=== PATIENT | female | born 1985 | race Caucasian/White ===

== ENCOUNTER 2017-08-14 13:38 | Emergency (ER) | payer OTHER ==
--- NOTE | 2017-08-14 14:16 | ED Physician Documentation ---
PD HPI CHEST PAIN - Stated complaint Stated Complaint: CHEST PX, VOMITTING - Chief complaint Chief Complaint: Cardiac - History obtained from History obtained from: Patient - History of Present Illness Timing - onset: Today Timing - onset during: Light activity Timing - details: Abrupt onset, Still present, Still present in ED Quality: Sharp, Tearing, Pain Location: Substernal Radiation: Back Improved by: No: Rest Worsened by: Inspiration, Movement. No: Eating, Palpation, Position Associated symptoms: Feeling faint / dizzy. No: Shortness of air, Nausea, Vomiting, Palpitations, Cough Similar symptoms before: Has not had sx before Recently seen: Not recently seen Review of Systems Constitutional: denies: Fever, Chills Nose: denies: Rhinorrhea / runny nose, Congestion Throat: denies: Sore throat Cardiac: denies: Palpitations, Pedal edema, Calf pain Respiratory: denies: Cough GI: denies: Abdominal Pain, Nausea, Vomiting, Diarrhea : denies: Dysuria, Frequency Skin: denies: Rash, Lesions Musculoskeletal: denies: Joint pain, Extremity swelling Neurologic: denies: Near syncope, Syncope, Altered mental status PD PAST MEDICAL HISTORY - Past Medical History Cardiovascular: None Respiratory: None Neuro: None Endocrine/Autoimmune: None GI: GERD 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) : Chronic bladder infection HEENT: None Psych: None Musculoskeletal: None Derm: None - Past Surgical History Past Surgical History: Yes /BULK PALLET 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: section - Present Medications Home Medications: Ambulatory Orders Medication Instructions Recorded Confirmed Famotidine [Pepcid] 20 mg PO ONCE #20 tablet 08/14/17 Multivitamin [Multivitamins] 1 cap PO DAILY 08/14/17 08/14/17 Naproxen [Naprosyn] 500 mg PO BID #15 tablet 08/14/17 Oxycodone HCl/Acetaminophen 1 each PO Q6H PRN #12 tablet 08/14/17 [Percocet 5-325 mg Tablet] - Allergies Allergies/Adverse Reactions: Allergies Allergy/AdvReac Type Severity Reaction Status Date / Time clarithromycin [From Biaxin] Allergy Severe Itching Verified 08/14/17 13:54 erythromycin base Allergy Severe Rash Verified 08/14/17 13:54 [Erythromycin Base] hydrocodone bitartrate * Allergy Severe Itching Verified 08/14/17 13:54 [From Vicodin] levofloxacin [From Levaquin] Allergy Severe Rash Verified 08/14/17 13:54 Penicillins Allergy Severe Hives Verified 08/14/17 13:54 Sulfa (Sulfonamide Allergy Severe Itching Verified 08/14/17 13:54 Antibiotics) - Social History Does the pt smoke?: No Smoking Status: Never smoker Does the pt drink ETOH?: Yes Does the pt have substance abuse?: No - Family History Family history: denies: Venous thromboembolism, Aortic aneursym, Aortic dissection - Immunizations Immunizations are current?: Yes - POLST Patient has POLST: No PD ED PE NORMAL - Vitals Vital signs reviewed: Yes - General General: Alert and oriented X 3, Well developed/nourished, Other (appears in significant pain, with intermittent stabbinb pain substernally.) - HEENT HEENT: Moist mucous membranes, Pharynx benign - Neck Neck: Supple, no meningeal sign, No adenopathy - Cardiac Cardiac: RRR, No murmur - Respiratory Respiratory: No respiratory distress, Clear bilaterally - Abdomen Abdomen: Normal bowel sounds, Soft, Non tender, Non distended - Back Back: No CVA TTP - Derm Derm: Normal color, Warm and dry - Extremities Extremities: No tenderness to palpate, Normal ROM s pain, No edema, No calf tenderness / cord - Neuro Neuro: Alert and oriented X 3, No motor deficit, Normal speech - Psych Psych: Normal mood, Normal affect Results - Vitals Vitals: Vital Signs - 24 hr 08/14/17 08/14/17 08/14/17 13:50 15:23 16:30 Temperature 36.5 C 36.5 C 36.4 C L Heart Rate 97 74 76 Respiratory 20 16 12 Rate Blood Pressure 132/80 H 109/71 123/78 O2 Saturation 99 98 98 08/14/17 08/14/17 16:38 17:20 Temperature 36.3 C L Heart Rate 73 75 Respiratory 16 16 Rate Blood Pressure 122/67 128/70 O2 Saturation 100 98 Oxygen O2 Source Room air - Labs Labs: Laboratory Tests 08/14/17 08/14/17 08/14/17 15:11 15:11 15:11 WBC 5.6 RBC 5.72 H Hgb 14.5 Hct 44.4 MCV 77.6 L MCH 25.4 L MCHC 32.7 RDW 14.2 Plt Count 169 MPV 8.8 Neut # 2.3 Lymph # 2.6 [place] # 0.5 Eos # 0.2 Baso # 0.0 Absolute Nucleated RBC 0.00 Nucleated RBC % 0.0 Sodium 139 Potassium 4.2 Chloride 105 Carbon Dioxide 25 Anion Gap 9.0 BUN 15 Creatinine 0.8 Estimated GFR (MDRD) 85 L Glucose 111 H Calcium 8.8 Total Bilirubin 0.4 AST 18 ALT 24 Alkaline Phosphatase 64 Troponin I < 0.04 Total Protein 7.0 Albumin 4.1 Globulin 2.9 Albumin/Globulin Ratio 1.4 Lipase 23 - Rads (name of study) chest xray Radiology: Prelim report reviewed (normal) chest CT-A Radiology: Prelim report reviewed (negative) PD MEDICAL DECISION MAKING - ED course Complexity details: considered differential (such severe substernal pain, sharp and stabbing, not improved with GI cocktail. Normal ECG and CXR. Concern for vascular such as aortic dissection, that got CT angio chest, which is read as normal by Radiologist. ), d/w patient Departure - Departure Disposition: 01 Home, Self Care Clinical Impression: Substernal chest pain Condition: Stable Record reviewed to determine appropriate education?: Yes Instructions: ED Chest Pain Atypical Unkn Cause Follow-Up: FAITH QUEVEDO MD [Primary Care Provider] - Prescriptions: Famotidine [Pepcid] 20 mg PO ONCE #20 tablet Naproxen [Naprosyn] 500 mg PO BID #15 tablet Oxycodone HCl/Acetaminophen [Percocet 5-325 mg Tablet] 1 each PO Q6H PRN #12 tablet PRN Reason: Pain Comments: Drink lots of fluids. I do not know the cause of the pain exactly. I presume its inflammatory given the better response to Toradol which is an anti- inflammatory than it did to the antacid. However he would still do some acid reducing medicine for the stomach in case and suggest famotidine daily for couple weeks. Additionally I would use some ibuprofen or naproxen twice daily for the next week for inflammation. Add Tylenol for mild pain. Add Percocet if needed for worse pain but very short-term only. Recheck if not entirely improved over the next 3-4 days. Return sooner if worse or other symptoms. Discharge Date/Time: 08/14/17 17:22
[2017-08-14] MEDS ORDERED: LIDOCAINE VISCOUS 2% 15 ML UDC MM STA (14:29)
[2017-08-14] MEDS ORDERED: MAG HYDROX/AL HYDROX/SIMETH 30 ML UDC PO STA (14:29)
[2017-08-14] MEDS ORDERED: ACETAMINOPHEN 325 MG TABLET PO STA (14:29)
[2017-08-14] MEDS ORDERED: MAG HYDROX/AL HYDROX/SIMETH 30 ML UDC ONE (14:50)
[2017-08-14] MEDS ORDERED: LIDOCAINE VISCOUS 2% 15 ML UDC MM ONE (14:50)
[2017-08-14] MEDS ORDERED: ACETAMINOPHEN 325 MG TABLET PO ONE (14:50)
[2017-08-14] MEDS ORDERED: KETOROLAC 60 MG/2 ML VIAL IVP STA (15:02)
[2017-08-14] MEDS ORDERED: IOPAMIDOL-300 100 ML VIAL ONE (15:09)
[2017-08-14] MEDS ORDERED: SODIUM CHLORIDE FLUSH 0.9% 10 ML SYRINGE IVP ONE (15:20)
[2017-08-14] MEDS ORDERED: KETOROLAC 30 MG/ML VIAL ONE (15:20)
--- NOTE | 2017-08-14 15:25 | XRAY Preliminary Report ---
Exam: XR Chest 2 View PA/LAT IMPRESSION: Normal 2-view chest radiography. [facility] SITE ID: [id number]
[2017-08-14 15:26] LABS: BASOPHILS % (AUTO) 0.5 %; EOSINOPHILS # (AUTO) 0.2 10^3/uL (0.0-0.7); EOSINOPHILS % (AUTO) 3.5 %; HCT - HEMATOCRIT 44.4 % (37.0-47.0); HGB - HEMOGLOBIN 14.5 g/dL (12.0-16.0); LYMPHOCYTES # (AUTO) 2.6 10^3/uL (1.5-3.5); LYMPHOCYTES % (AUTO) 46.6 %; MEAN CORPUSCULAR HEMOGLOBIN 25.4 pg (27.0-31.0); MEAN CORPUSCULAR HGB CONC 32.7 g/dL (32.0-36.0); MEAN CORPUSCULAR VOLUME 77.6 fL (81.0-99.0); MEAN PLATELET VOLUME 8.8 fL (7.9-10.8); MONOCYTES # (AUTO) 0.5 10^3/uL (0.0-1.0); MONOCYTES % (AUTO) 8.3 %; NEUTROPHILS # (AUTO) 2.3 10^3/uL (1.5-6.6); NEUTROPHILS % (AUTO) 41.1 %; RED BLOOD COUNT 5.72 10^6/uL (4.20-5.40); RED CELL DISTRIBUTION WIDTH 14.2 % (12.0-15.0); UNCORRECTED WHITE BLOOD COUNT 5.6 x10^3/uL; WHITE BLOOD COUNT 5.6 x10^3/uL (4.8-10.8)
--- NOTE | 2017-08-14 15:27 | XRAY Report ---
EXAM: CHEST RADIOGRAPHY EXAM DATE: 08/14/2017 02:52 PM. CLINICAL HISTORY: Substernal chest pain today. COMPARISON: None. TECHNIQUE: 2 views. FINDINGS: Lungs/Pleura: No focal opacities evident. No pleural effusion. No pneumothorax. Normal volumes. Mediastinum: Heart and mediastinal contours are unremarkable. Other: None. IMPRESSION: Normal 2-view chest radiography. [facility] Referring Provider Line: [phone] SITE ID: [id number]
[2017-08-14 15:31] LABS: ALBUMIN/GLOBULIN RATIO 1.4 (1.0-2.2); BILIRUBIN,TOTAL 0.4 mg/dL (0.2-1.0); CALCIUM 8.8 mg/dL (8.5-10.3); CREATININE 0.8 mg/dL (0.4-1.0); POTASSIUM 4.2 mmol/L (3.5-5.0)
[2017-08-14] MEDS ORDERED: IOPAMIDOL-300 100 ML VIAL IVP ONE (15:43)
--- NOTE | 2017-08-14 16:10 | CT Report ---
<H1.> EXAM: CT ANGIOGRAM CHEST AND ABDOMEN EXAM DATE: 08/14/2017 03:46 PM. CLINICAL HISTORY: Substernal chest pain, severe. COMPARISONS: None. TECHNIQUE: Routine axial helical CT angiographic imaging was performed through the chest and abdomen. IV Contras t: 80 cc of Isovue 300. Reconstructions: Coronal, sagittal, and 3D MIP reconstructions of the aorta. In accordance with CT protocol optimization, one or more of the following dose reduction techniques w ere utilized for this exam: automated exposure control, adjustment of mA and/or KV based on patient s ize, or use of iterative reconstructive technique. FINDINGS: Vascular Structures: Normal. No aneurysm, dissection, or significant atherosclerotic disease of the t horacic aorta, abdominal aorta, or proximal iliac arteries. The visualized pulmonary, mesenteric, and solid organ vascular structures are also within normal limits. Lungs/Pleura: No consolidation, nodules, or edema. No effusions or pneumothorax. Mediastinum: Normal. No cardiac enlargement or adenopathy. Abdominal Organs: Normal. The liver, spleen, pancreas, adrenal glands, gallbladder and kidneys are no rmal in size and demonstrate no masses or abnormal enhancement. Peritoneal Cavity: Normal. No free fluid, free air, or acute inflammatory process. Bones: No significant abnormality. Other: None. IMPRESSION: Normal chest and abdomen CT angiogram. No aneurysm or dissection. [facility] Referring Provider Line: [phone] SITE ID: [id number]
--- NOTE | 2017-08-14 16:10 | CT Preliminary Report ---
Exam: CT Chest Angio (AORTA) IMPRESSION: Normal chest and abdomen CT angiogram. No aneurysm or dissection. [facility] SITE ID: [id number]
[2017-08-14 17:21] VITALS: BP 128/70
== END 2017-08-14 17:22 | disposition home or self-care (01) ==
LOC: ED 13:38
DX: R07.2 Precordial pain (principal)
CPT/HCPCS: 36415; 71020; 71275; 80053; 83690; 84484; 85025; 93005; 96374; 99284; A9270; Q9967

== ENCOUNTER 2019-01-11 18:06 | Emergency (ER) | payer OTHER ==
[2019-01-11 18:17] VITALS: BP 140/88
[2019-01-11] MEDS ORDERED: KETOROLAC 30 MG/ML VIAL IVP STA (19:01)
[2019-01-11] MEDS ORDERED: METOCLOPRAMIDE 10 MG/2 ML VIAL IVP STA (19:02)
[2019-01-11] MEDS ORDERED: LORazepam 2 MG/ML VIAL IVP STA (19:02)
--- NOTE | 2019-01-11 19:06 | ED Physician Documentation ---
PD HPI FOCAL NEURO - Stated complaint Stated Complaint: HEADACHE/SOA/LT ARM PX - Chief complaint Chief Complaint: Neuro - History obtained from History obtained from: Patient - History of Present Illness Timing - onset: Other (This is a 33-year-old woman with history of anxiety and depression. She recently stopped Cymbalta about a week and a half ago because of side effects. She denies suicidal or homicidal ideation but presents today with multiple complaints including chronic migraine headache with aura since yesterday seeing black spots in her eyes. She also has increased chest and neck pain similar to prior episodes of vocal cord dysfunction. She denies any possibility of . No alcohol or drug use. 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: section - Present Medications Home Medications: Ambulatory Orders Medication Instructions Recorded Confirmed Famotidine [Pepcid] 20 mg PO ONCE #20 tablet 08/14/17 Multivitamin [Multivitamins] 1 cap PO DAILY 08/14/17 08/14/17 Naproxen [Naprosyn] 500 mg PO BID #15 tablet 08/14/17 Oxycodone HCl/Acetaminophen 1 each PO Q6H PRN #12 tablet 08/14/17 [Percocet 5-325 mg Tablet] Amitriptyline [Elavil] 25 mg PO HS #7 tablet 01/11/19 - Allergies Allergies/Adverse Reactions: Allergies Allergy/AdvReac Type Severity Reaction Status Date / Time clarithromycin [From Biaxin] Allergy Severe Itching Verified 01/11/19 18:17 erythromycin base Allergy Severe Rash Verified 01/11/19 18:17 [Erythromycin Base] hydrocodone bitartrate * Allergy Severe Itching Verified 01/11/19 18:17 [From Vicodin] levofloxacin [From Levaquin] Allergy Severe Rash Verified 01/11/19 18:17 Penicillins Allergy Severe Hives Verified 01/11/19 18:17 Sulfa (Sulfonamide Allergy Severe Itching Verified 01/11/19 18:17 Antibiotics) - Social History Does the pt smoke?: No Smoking Status: Never smoker Does the pt drink ETOH?: Yes Does the pt have substance abuse?: No - Immunizations Immunizations are current?: Yes - POLST Patient has POLST: No PD ED PE NORMAL - Vitals Vital signs reviewed: Yes - General General: Alert and oriented X 3, No acute distress, Other (She is tearful at times) - HEENT HEENT: PERRL, EOMI - Neck Neck: Supple, no meningeal sign, No bony TTP - Cardiac Cardiac: RRR, No murmur, Other (Tender anterior sternum and chest wall) - Respiratory Respiratory: No respiratory distress, Clear bilaterally - Abdomen Abdomen: Normal bowel sounds, Soft, Non tender - Back Back: No CVA TTP, No spinal TTP - Derm Derm: Normal color, Warm and dry - Extremities Extremities: No edema, No calf tenderness / cord - Neuro Neuro: Alert and oriented X 3, Normal speech Results - Vitals Vitals: Vital Signs - 24 hr 01/11/19 18:13 Temperature 36.6 C Heart Rate 73 Respiratory 14 Rate Blood Pressure 140/88 H O2 Saturation 100 Oxygen O2 Source Room air - EKG (time done) 1829 Rate: Rate (enter#) (83) Rhythm: NSR [place]: Normal Intervals: Normal [place] QRS: Normal Ischemia: ST elevation c/w repol Computer interpretation: Agree with computer - Labs Labs: Laboratory Tests 01/11/19 01/11/19 01/11/19 19:08 19:08 19:08 WBC 5.9 RBC 5.55 H Hgb 14.2 Hct 43.2 MCV 77.9 L MCH 25.6 L MCHC 32.8 RDW 14.7 Plt Count 206 MPV 8.9 Neut # (Auto) 2.2 Lymph # (Auto) 2.7 [place] # (Auto) 0.7 Eos # (Auto) 0.3 Baso # (Auto) 0.0 Absolute Nucleated RBC 0.00 Nucleated RBC % 0.0 Sodium 137 Potassium 3.6 Chloride 105 Carbon Dioxide 25 Anion Gap 7.0 BUN 12 Creatinine 0.8 Estimated GFR (MDRD) 84 L Glucose 98 Calcium 8.6 Total Bilirubin 0.4 AST 16 ALT 25 Alkaline Phosphatase 69 Troponin I < 0.04 Total Protein 6.9 Albumin 3.9 Globulin 3.0 Albumin/Globulin Ratio 1.3 Lipase 28 PD MEDICAL DECISION MAKING - ED course ED course: 33-year-old woman presents with status migrainosus and vocal cord dysfunction for which she was treated with Toradol Reglan and Ativan with excellent relief. Diagnostics were negative. We will trial a low-dose of amitriptyline at night, a limited prescription and she will follow-up with her doctor to report if it is helping with her migraine frequency and/or depression. Departure - Departure Disposition: Home, Self Care Clinical Impression: Migraine Qualifiers: Migraine type: with aura Status migrainosus presence: with status migrainosus Intractability: intractable Qualified Code(s): G43.111 - Migraine with aura, intractable, with status migrainosus Condition: Good Record reviewed to determine appropriate education?: Yes Instructions: ED Headache Migraine Prescriptions: Amitriptyline [Elavil] 25 mg PO HS #7 tablet Comments: The amitriptyline should help with both depression and migraine frequency. Report to your doctor early next week if it is helpful for refill. Your blood pressure was elevated today on check into the emergency department. This does not mean that you have hypertension, it is a common phenomenon to come to the emergency department and have elevated blood pressure. I recommend that you see your primary care physician within the week to have it rechecked when you are feeling better.
[2019-01-11 19:17] LABS: BASOPHILS % (AUTO) 0.6 %; EOSINOPHILS # (AUTO) 0.3 10^3/uL (0.0-0.7); EOSINOPHILS % (AUTO) 4.2 %; HGB - HEMOGLOBIN 14.2 g/dL (12.0-16.0); LYMPHOCYTES # (AUTO) 2.7 10^3/uL (1.5-3.5); LYMPHOCYTES % (AUTO) 45.9 %; MEAN CORPUSCULAR HEMOGLOBIN 25.6 pg (27.0-31.0); MEAN CORPUSCULAR HGB CONC 32.8 g/dL (32.0-36.0); MEAN CORPUSCULAR VOLUME 77.9 fL (81.0-99.0); MEAN PLATELET VOLUME 8.9 fL (7.9-10.8); MONOCYTES # (AUTO) 0.7 10^3/uL (0.0-1.0); MONOCYTES % (AUTO) 11.7 %; NEUTROPHILS # (AUTO) 2.2 10^3/uL (1.5-6.6); NEUTROPHILS % (AUTO) 37.6 %; PLT - PLATELET COUNT 206 10^3/uL (130-450); RED BLOOD COUNT 5.55 10^6/uL (4.20-5.40); RED CELL DISTRIBUTION WIDTH 14.7 % (12.0-15.0); WHITE BLOOD COUNT 5.9 x10^3/uL (4.8-10.8)
[2019-01-11 19:26] LABS: ALBUMIN 3.9 g/dL (3.2-5.5); ALBUMIN/GLOBULIN RATIO 1.3 (1.0-2.2); BILIRUBIN,TOTAL 0.4 mg/dL (0.2-1.0); CALCIUM 8.6 mg/dL (8.5-10.3); CREATININE 0.8 mg/dL (0.4-1.0); TOTAL PROTEIN 6.9 g/dL (6.7-8.2)
== END 2019-01-11 20:09 | disposition home or self-care (01) ==
LOC: ED 18:06
DX: G43.111 Migraine with aura, intractable, with status migrainosus (principal); J38.3 Other diseases of vocal cords; R03.0 Elevated blood-pressure reading, without diagnosis of hypertension
CPT/HCPCS: 36415; 80053; 83690; 84484; 85025; 93005; 96374; 99283; J2060; J2765

== ENCOUNTER 2019-12-21 15:38 | Emergency (ER) | payer OTHER ==
[2019-12-21] MEDS ORDERED: CHERRY SYRUP 10 ML UDC PO ONE (16:17)
[2019-12-21] MEDS ORDERED: DEXAMETHASONE 10 MG/ML VIAL PO STA (16:17)
[2019-12-21] MEDS ORDERED: KETOROLAC 60 MG/2 ML VIAL IM STA (16:17)
--- NOTE | 2019-12-21 16:20 | ED Physician Documentation ---
History of Present Illness - Stated complaint Stated Complaint: AB/RIB PX - Chief complaint Chief Complaint: Trauma Ext - History obtained from History obtained from: Patient - History of Present Illness Timing: How many weeks ago (8) - Additonal information Additional information: 32-year-old female with a history of anxiety depression arthritis and migraine h brad has generalized pain and pain in her ribs the pain down her left arm and left neck. She is wearing a sling for the left arm. She has had manipulations of her ribs previously done which has previously helped this last time it did not seem to help and she is complaining of pain in her anterior right ribs pain in her hands pain in her hips pain over her right upper quadrant of her abdomen pain in her neck and back. She has had some congestion and a high-pitched noise in her ears as well as some dizziness.She has had low-grade fever and cough. Review of Systems Constitutional: reports: Fever Eyes: denies: Decreased vision Ears: reports: Ear pain, Tinnitus/ringing Nose: reports: Congestion Throat: denies: Sore throat Cardiac: reports: Chest pain / pressure. denies: Palpitations, Pedal edema, Calf pain Respiratory: reports: Cough. denies: Dyspnea GI: reports: Nausea. 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: section - Present Medications Home Medications: Ambulatory Orders Medication Instructions Recorded Confirmed Famotidine [Pepcid] 20 mg PO ONCE #20 tablet 08/14/17 Multivitamin [Multivitamins] 1 cap PO DAILY 08/14/17 08/14/17 Naproxen [Naprosyn] 500 mg PO BID #15 tablet 08/14/17 Oxycodone HCl/Acetaminophen 1 each PO Q6H PRN #12 tablet 08/14/17 [Percocet 5-325 mg Tablet] Amitriptyline [Elavil] 25 mg PO HS #7 tablet 01/11/19 Cefdinir 300 mg PO BID #20 capsule 12/21/19 - Allergies Allergies/Adverse Reactions: Allergies Allergy/AdvReac Type Severity Reaction Status Date / Time clarithromycin [From Biaxin] Allergy Severe Itching Verified 01/11/19 18:17 erythromycin base Allergy Severe Rash Verified 01/11/19 18:17 [Erythromycin Base] hydrocodone bitartrate * Allergy Severe Itching Verified 01/11/19 18:17 [From Vicodin] levofloxacin [From Levaquin] Allergy Severe Rash Verified 01/11/19 18:17 Penicillins Allergy Severe Hives Verified 01/11/19 18:17 Sulfa (Sulfonamide Allergy Severe Itching Verified 01/11/19 18:17 Antibiotics) - Social History Does the pt smoke?: No Smoking Status: Never smoker Does the pt drink ETOH?: Yes Does the pt have substance abuse?: No - Immunizations Immunizations are current?: Yes - POLST Patient has POLST: No PD ED PE NORMAL - Vitals Vital signs reviewed: Yes (hypertensive mild ) - General General: Alert and oriented X 3, No acute distress, Well developed/nourished - HEENT HEENT: Atraumatic, PERRL, EOMI, Pharynx benign, Other (right TM is inflamed angrily along the umbo the left is clear ) - Neck Neck: Supple, no meningeal sign, No bony TTP - Cardiac Cardiac: RRR, No murmur - Respiratory Respiratory: No respiratory distress, Clear bilaterally, Other (There is tenderness to the anterior chest wall along the costosternal margin. 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 She does have otitis on exam. She is administered dexamethasone 10 mg orally Toradol 60 mg IM and we will treat her otitis with antibiotic as well as I suspect this may be contributing to her increased overall pain. I do not have a solution for the patient's allodynia otherwise. I have discussed with her potential follow up with rheumatology as her pain is wide spread, involves joints and is persistent. She will need a referral. Departure - Departure Disposition: 01 Home, Self Care Clinical Impression: Allodynia Otitis media Qualifiers: Otitis media type: suppurative Chronicity: acute Laterality: right Recurrence: non-recurrent Spontaneous tympanic membrane rupture: without spontaneous rupture Qualified Code(s): H66.001 - Acute suppurative otitis media without spontaneous rupture of ear drum, right ear Condition: Stable Instructions: ED Otitis Media Acute Adult, ED Joint Pain, ED Chest Pain Costochondritis Follow-Up: YUNG LEIVA MD [Primary Care Provider] - Prescriptions: Cefdinir 300 mg PO BID #20 capsule Comments: Today your wide spread pain is concerning for a rheumatologic problem and a fo llow up with a supplier diversity director might be helpful.
[2019-12-21 17:56] VITALS: BP 119/71
== END 2019-12-21 17:55 | disposition home or self-care (01) ==
LOC: ED 15:38
DX: R20.3 Hyperesthesia (principal); H66.001 Acute suppurative otitis media without spontaneous rupture of ear drum, right ear
CPT/HCPCS: 96372; 99283; 99284; A9270

== ENCOUNTER 2020-07-14 21:46 | Emergency (ER) | payer OTHER ==
--- NOTE | 2020-07-14 22:01 | ED Physician Documentation ---
PD HPI DYSPNEA - Stated complaint Stated Complaint: SOA, FOOT SWELLING - Chief complaint Chief Complaint: Cardiac - History obtained from History obtained from: Patient - History of Present Illness Timing - onset: How many days ago (3) Timing - details: Gradual onset, Constant, Waxing and waning Pain level now: 3 Improved by: Rest Worsened by: Exertion Associated symptoms: Chest pain / discomfort, Unilateral edema. No: Fever, Cough, Hemoptysis, Wheezing, Palpitations, Diaphoresis, Bilateral edema Similar symptoms before: Has not had sx before Recently seen: Not recently seen - Additional information Additional information: c/o 3 days of chest pressure/tightness with intermittent component of stabbing pain, associated with dyspnea. She also notes LLE swelling for several weeks. Review of Systems Constitutional: denies: Fever, Chills, Sweats Cardiac: reports: Chest pain / pressure, Pedal edema. denies: Palpitations, Calf pain Respiratory: reports: Dyspnea. denies: Cough, Hemoptysis, Wheezing GI: reports: Reviewed and negative : denies: Dysuria, Frequency, Now EGA Musculoskeletal: reports: Extremity swelling. 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: section - Present Medications Home Medications: Ambulatory Orders Medication Instructions Recorded Confirmed Famotidine [Pepcid] 20 mg PO ONCE #20 tablet 08/14/17 Multivitamin [Multivitamins] 1 cap PO DAILY 08/14/17 08/14/17 Naproxen [Naprosyn] 500 mg PO BID #15 tablet 08/14/17 Oxycodone HCl/Acetaminophen 1 each PO Q6H PRN #12 tablet 08/14/17 [Percocet 5-325 mg Tablet] Amitriptyline [Elavil] 25 mg PO HS #7 tablet 01/11/19 Cefdinir 300 mg PO BID #20 capsule 12/21/19 traMADol [Ultram] 50 - 100 mg PO Q6H PRN #20 tablet 07/15/20 - Allergies Allergies/Adverse Reactions: Allergies Allergy/AdvReac Type Severity Reaction Status Date / Time clarithromycin [From Biaxin] Allergy Severe Itching Verified 07/14/20 22:26 erythromycin base Allergy Severe Rash Verified 07/14/20 22:26 [Erythromycin Base] hydrocodone bitartrate * Allergy Severe Itching Verified 07/14/20 22:26 [From Vicodin] levofloxacin [From Levaquin] Allergy Severe Rash Verified 07/14/20 22:26 Penicillins Allergy Severe Hives Verified 07/14/20 22:26 Sulfa (Sulfonamide Allergy Severe Itching Verified 07/14/20 22:26 Antibiotics) - Social History Does the pt smoke?: No Smoking Status: Never smoker Does the pt drink ETOH?: Yes Does the pt have substance abuse?: No - Immunizations Immunizations are current?: Yes - POLST Patient has POLST: No PD ED PE NORMAL - Vitals Vital signs reviewed: Yes - General General: Alert and oriented X 3, No acute distress, Well developed/nourished - HEENT HEENT: Moist mucous membranes - Neck Neck: Supple, no meningeal sign - Cardiac Cardiac: RRR, No murmur, No gallop, No rub - Respiratory Respiratory: No respiratory distress, Clear bilaterally - Abdomen Abdomen: Soft, Non tender - Derm Derm: Normal color, Warm and dry - Extremities Extremities: No edema, No calf tenderness / cord Results - Vitals Vitals: Vital Signs - 24 hr 07/14/20 07/14/20 07/14/20 21:55 22:00 23:00 Temperature 37.2 C Heart Rate 84 77 78 Respiratory 16 17 24 Rate Blood Pressure 136/88 H 120/82 H 135/105 H O2 Saturation 100 100 100 07/14/20 07/14/20 07/15/20 23:11 23:48 00:54 Temperature Heart Rate 81 90 87 Respiratory 20 25 H 25 H Rate Blood Pressure 130/84 H 128/86 H 121/74 O2 Saturation 100 100 100 07/15/20 07/15/20 02:08 02:19 Temperature 36.9 C 37.1 C Heart Rate 70 72 Respiratory 16 14 Rate Blood Pressure 122/84 H 122/84 H O2 Saturation 100 99 Oxygen O2 Source Room air - EKG (time done) No standard instances Rate: Rate (enter#) (77) Rhythm: NSR [place]: Normal Intervals: Normal CA QRS: Normal Ischemia: Normal ST segments - Labs Labs: Laboratory Tests 07/14/20 07/14/20 07/14/20 23:01 23:01 23:01 WBC 9.6 RBC 5.34 Hgb 13.8 Hct 43.0 MCV 80.5 L MCH 25.8 L MCHC 32.1 RDW 14.4 Plt Count 241 MPV 10.9 H Neut # (Auto) 4.7 Lymph # (Auto) 3.7 H [place] # (Auto) 0.8 Eos # (Auto) 0.4 Baso # (Auto) 0.0 Absolute Nucleated RBC 0.00 Nucleated RBC % 0.0 Sodium 135 Potassium 3.9 Chloride 103 Carbon Dioxide 25 Anion Gap 7.0 BUN 16 Creatinine 0.9 Estimated GFR (MDRD) 73 L Glucose 103 H Calcium 8.8 Total Bilirubin 0.4 AST 14 ALT 23 Alkaline Phosphatase 70 Troponin I High Sens < 2.3 L Total Protein 6.7 Albumin 4.1 Globulin 2.6 Albumin/Globulin Ratio 1.6 Lipase 25 - Rads (name of study) CT chest angio Radiology: Prelim report reviewed, See rad report LLE doppler US Radiology: Prelim report reviewed, See rad report PD MEDICAL DECISION MAKING - ED course Complexity details: reviewed results, re-evaluated patient, considered differential, d/w patient Departure - Departure Disposition: 01 Home, Self Care Clinical Impression: Chest pain Condition: Good Instructions: ED Chest Pain Atypical Unkn Cause, ED Chest Pain Costochondritis, ED Chest Pain Pleurisy Follow-Up: Liliana Prado ARNP [Primary Care Provider] - Prescriptions: traMADol [Ultram] 50 - 100 mg PO Q6H PRN #20 tablet PRN Reason: Pain Discharge Date/Time: 07/15/20 02:22
[2020-07-14 23:07] LABS: BASOPHILS % (AUTO) 0.3 %; EOSINOPHILS # (AUTO) 0.4 10^3/uL (0.0-0.7); EOSINOPHILS % (AUTO) 4.5 %; HGB - HEMOGLOBIN 13.8 g/dL (12.0-16.0); LYMPHOCYTES # (AUTO) 3.7 10^3/uL (1.5-3.5); LYMPHOCYTES % (AUTO) 38.6 %; MEAN CORPUSCULAR HEMOGLOBIN 25.8 pg (27.0-31.0); MEAN CORPUSCULAR HGB CONC 32.1 g/dL (32.0-36.0); MEAN CORPUSCULAR VOLUME 80.5 fL (81.0-99.0); MEAN PLATELET VOLUME 10.9 fL (7.9-10.8); MONOCYTES # (AUTO) 0.8 10^3/uL (0.0-1.0); MONOCYTES % (AUTO) 7.9 %; NEUTROPHILS # (AUTO) 4.7 10^3/uL (1.5-6.6); NEUTROPHILS % (AUTO) 48.3 %; PLT - PLATELET COUNT 241 10^3/uL (130-450); RED BLOOD COUNT 5.34 10^6/uL (4.20-5.40); RED CELL DISTRIBUTION WIDTH 14.4 % (12.0-15.0); WHITE BLOOD COUNT 9.6 x10^3/uL (4.8-10.8)
[2020-07-14] MEDS ORDERED: IOVERSOL 320 100 ML VIAL IVP ONE (23:11)
[2020-07-14 23:30] LABS: ALBUMIN 4.1 g/dL (3.2-5.5); ALBUMIN/GLOBULIN RATIO 1.6 (1.0-2.2); BILIRUBIN,TOTAL 0.4 mg/dL (0.2-1.0); CALCIUM 8.8 mg/dL (8.5-10.3); CREATININE 0.9 mg/dL (0.4-1.0); TOTAL PROTEIN 6.7 g/dL (6.7-8.2)
[2020-07-15] MEDS ORDERED: traMADol 50 MG TABLET PO STA (01:32)
[2020-07-15] MEDS ORDERED: KETOROLAC 30 MG/ML VIAL IVP STA (01:32)
[2020-07-15 02:11] VITALS: BP 122/84
[2020-07-15] MEDS ORDERED: IOVERSOL 320 100 ML VIAL IVP ONE (03:18)
--- NOTE | 2020-07-15 10:37 | CT Report ---
PROCEDURE: ANGIO CHEST W/WO INDICATIONS: pleuritic CP, LLE swelling CONTRAST: IV CONTRAST: Optiray 320 ml: 100 PO CONTRAST: *NO PO CONTRAST TECHNIQUE: After the administration of intravenous contrast, 2 mm thick sections acquired from the pulmonary api marc to the posterior costophrenic angles. 3-dimensional maximum intensity projection (MIP) coronal a nd sagittal reformats were then acquired through the thorax. For radiation dose reduction, the follow ing was used: automated exposure control, adjustment of mA and/or kV according to patient size. COMPARISON: Chest CT 08/14/2017. Correlation is also made with chest radiograph 08/14/2017. Correlat ion is also made with the accompanying venous ultrasound 07/14/2020 FINDINGS: Image quality: Excellent. Pulmonary arteries: Pulmonary arteries are normal in size, and demonstrate no intraluminal filling d efects to suggest central pulmonary embolism. Lungs and pleura: Lungs are clear. No pleural effusions or pneumothorax. Central and peripheral ai rways are patent. Mediastinum: Heart size is normal, without pericardial effusion. A small amount of residual thymus t issue can be seen within the anterior mediastinum, which is considered to be within normal limits for a patient of this age. No mediastinal or hilar adenopathy. Thoracic aorta is normal in caliber and enhancement. Esophagus is normal in caliber, without hiatal hernia. Bones and chest wall: No suspicious bony lesions. Ribs and thoracic spine appear intact throughout. The thyroid is normal. No axillary or supraclavicular adenopathy. Abdomen: Visualized upper abdominal solid organs appear normal in the early arterial phase of enhanc ement. IMPRESSION: Negative for pulmonary embolism. Normal study. Note: No significant discrepancy from the preliminary report. Reviewed by: Srinivas Adamson MD on 07/15/2020 9:36 AM KIT Approved by: Srinivas Adamson MD on 07/15/2020 9:36 AM KTI Station ID: [id number]
--- NOTE | 2020-07-15 10:39 | Ultrasound Report ---
PROCEDURE: Duplex Ext Veins Left INDICATIONS: LLE swelling TECHNIQUE: Real-time imaging, as well as color and pulse Doppler interrogation, were performed of the lower extr emity deep veins from the inguinal ligament to the popliteal fossa. COMPARISON: Correlation is made with the subsequently performed chest CT 07/15/2020 FINDINGS: The deep veins are normally compressible, and free of intraluminal thrombus. Color and pu lse Doppler demonstrate normal phasic intraluminal flow. There is normal augmentation response to di stal compression maneuver. IMPRESSION: No findings of deep venous thrombosis are seen. Note: No significant discrepancy from the preliminary report. Reviewed by: Srinivas Adamson MD on 07/15/2020 9:37 AM KIT Approved by: Srinivas Adamson MD on 07/15/2020 9:37 AM KIT Station ID: [id number]
== END 2020-07-15 02:22 | disposition home or self-care (01) ==
LOC: ED 21:46
DX: R07.9 Chest pain, unspecified (principal)
CPT/HCPCS: 36415; 71275; 80053; 83690; 84484; 85025; 93005; 93971; 96374; 99284; A9270; Q9967

== ENCOUNTER 2020-10-01 18:26 | Emergency (ER) | payer OTHER ==
[2020-10-01 19:39] LABS: BASOPHILS % (AUTO) 0.3 %; EOSINOPHILS # (AUTO) 0.3 10^3/uL (0.0-0.7); EOSINOPHILS % (AUTO) 3.2 %; HGB - HEMOGLOBIN 15.3 g/dL (12.0-16.0); LYMPHOCYTES # (AUTO) 3.7 10^3/uL (1.5-3.5); MEAN CORPUSCULAR HEMOGLOBIN 25.8 pg (27.0-31.0); MEAN CORPUSCULAR VOLUME 80.5 fL (81.0-99.0); MEAN PLATELET VOLUME 10.2 fL (7.9-10.8); MONOCYTES # (AUTO) 0.7 10^3/uL (0.0-1.0); MONOCYTES % (AUTO) 7.2 %; NEUTROPHILS # (AUTO) 4.9 10^3/uL (1.5-6.6); PLT - PLATELET COUNT 287 10^3/uL (130-450); RED BLOOD COUNT 5.94 10^6/uL (4.20-5.40); RED CELL DISTRIBUTION WIDTH 14.3 % (12.0-15.0); WHITE BLOOD COUNT 9.7 x10^3/uL (4.8-10.8)
[2020-10-01 19:50] LABS: ALBUMIN 4.4 g/dL (3.2-5.5); ALBUMIN/GLOBULIN RATIO 1.6 (1.0-2.2); BILIRUBIN,TOTAL 0.7 mg/dL (0.2-1.0); CALCIUM 9.1 mg/dL (8.5-10.3); CREATININE 0.9 mg/dL (0.4-1.0); TOTAL PROTEIN 7.1 g/dL (6.7-8.2)
[2020-10-01] MEDS ORDERED: SODIUM CHLORIDE 0.9% 1,000 ML IV STA ×2 (19:57→20:00)
[2020-10-01] MEDS ORDERED: PROCHLORPERAZINE 10 MG/2 ML VIAL IVP STA (19:58)
--- NOTE | 2020-10-01 20:02 | ED Physician Documentation ---
History of Present Illness - Stated complaint Stated Complaint: NAUSEA, VOMITING - Chief complaint Chief Complaint: General - History obtained from History obtained from: Patient - Additonal information Additional information: 34-year-old female presents to the emergency department with 1 month of worsening nausea vomiting. She reports that her symptoms began after her [facility] started her on venlaf[facility]. Since then she has had persistent nausea and the vomiting has been worse over the last 4 days. She has no fevers or focal abdominal tenderness. She reports that she spoke with her [facility] about this and they advised her to come to the emergency department. She denies taking any other prescribed medications. She denies any dysuria fevers hematuria or melena. She reports that with the vomiting she has been having more headaches which is also made her symptoms worse. Review of Systems Constitutional: denies: Fever, Chills Eyes: reports: Reviewed and negative Ears: reports: Reviewed and negative Nose: reports: Reviewed and negative Throat: reports: Reviewed and negative Cardiac: denies: Chest pain / pressure, Palpitations Respiratory: denies: Dyspnea, Cough, Hemoptysis GI: reports: Nausea, Vomiting. denies: Abdominal Pain, Abdominal Swelling : denies: Dysuria, Frequency, Hesitancy Skin: reports: Reviewed and negative Musculoskeletal: reports: Reviewed and negative Neurologic: reports: Reviewed and negative Psychiatric: reports: Depressed. 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 - Present Medications Home Medications: Ambulatory Orders Medication Instructions Recorded Confirmed Famotidine [Pepcid] 20 mg PO ONCE #20 tablet 08/14/17 Multivitamin [Multivitamins] 1 cap PO DAILY 08/14/17 08/14/17 Naproxen [Naprosyn] 500 mg PO BID #15 tablet 08/14/17 Oxycodone HCl/Acetaminophen 1 each PO Q6H PRN #12 tablet 08/14/17 [Percocet 5-325 mg Tablet] Amitriptyline [Elavil] 25 mg PO HS #7 tablet 01/11/19 Cefdinir 300 mg PO BID #20 capsule 12/21/19 traMADol [Ultram] 50 - 100 mg PO Q6H PRN #20 tablet 07/15/20 Prochlorperazine [Compazine] 5 mg PO BID #15 tablet 10/01/20 - Allergies Allergies/Adverse Reactions: Allergies Allergy/AdvReac Type Severity Reaction Status Date / Time clarithromycin [From Biaxin] Allergy Severe Itching Verified 07/14/20 22:26 erythromycin base Allergy Severe Rash Verified 07/14/20 22:26 [Erythromycin Base] hydrocodone bitartrate * Allergy Severe Itching Verified 07/14/20 22:26 [From Vicodin] levofloxacin [From Levaquin] Allergy Severe Rash Verified 07/14/20 22:26 Penicillins Allergy Severe Hives Verified 07/14/20 22:26 Sulfa (Sulfonamide Allergy Severe Itching Verified 07/14/20 22:26 Antibiotics) - Social History Does the pt smoke?: No Smoking Status: Never smoker Does the pt drink ETOH?: Yes Does the pt have substance abuse?: No - Immunizations Immunizations are current?: Yes - POLST Patient has POLST: No PD ED PE NORMAL - General General: Alert and oriented X 3, No acute distress - HEENT HEENT: PERRL, EOMI, Ears normal - Neck Neck: Supple, no meningeal sign, No adenopathy - Cardiac Cardiac: RRR, No murmur - Respiratory Respiratory: No respiratory distress, Clear bilaterally Results - Vitals Vitals: Vital Signs - 24 hr 10/01/20 18:32 Temperature 36.6 C Heart Rate 88 Respiratory 18 Rate Blood Pressure 127/67 O2 Saturation 97 Oxygen O2 Source Room air - Labs Labs: Laboratory Tests 10/01/20 10/01/20 10/01/20 19:32 19:32 19:32 WBC 9.7 RBC 5.94 H Hgb 15.3 Hct 47.8 H MCV 80.5 L MCH 25.8 L MCHC 32.0 RDW 14.3 Plt Count 287 MPV 10.2 Neut # (Auto) 4.9 Lymph # (Auto) 3.7 H Allen # (Auto) 0.7 Eos # (Auto) 0.3 Baso # (Auto) 0.0 Absolute Nucleated RBC 0.00 Nucleated RBC % 0.0 Sodium 140 Potassium 3.7 Chloride 104 Carbon Dioxide 26 Anion Gap 10.0 BUN 12 Creatinine 0.9 Estimated GFR (MDRD) 73 L Glucose 98 Calcium 9.1 Total Bilirubin 0.7 AST 15 ALT 27 Alkaline Phosphatase 77 Total Protein 7.1 Albumin 4.4 Globulin 2.7 Albumin/Globulin Ratio 1.6 Lipase 26 TSH 1.16 Urine Color Urine Clarity Urine pH Ur Specific Douglas Urine Protein Urine Glucose (UA) Urine Ketones Urine Occult Blood Urine Nitrite Urine Bilirubin Urine Urobilinogen Ur Leukocyte Esterase Ur Microscopic Review Urine Culture Comments Urine HCG, Qual 10/01/20 21:04 WBC RBC Hgb Hct MCV MCH MCHC RDW Plt Count MPV Neut # (Auto) Lymph # (Auto) Allen # (Auto) Eos # (Auto) Baso # (Auto) Absolute Nucleated RBC Nucleated RBC % Sodium Potassium Chloride Carbon Dioxide Anion Gap BUN Creatinine Estimated GFR (MDRD) Glucose Calcium Total Bilirubin AST ALT Alkaline Phosphatase Total Protein Albumin Globulin Albumin/Globulin Ratio Lipase TSH Urine Color YELLOW Urine Clarity CLEAR Urine pH 5.5 Ur Specific [place] >=1.030 H Urine Protein NEGATIVE Urine Glucose (UA) NEGATIVE Urine Ketones NEGATIVE Urine Occult Blood TRACE-INTA Urine Nitrite NEGATIVE Urine Bilirubin NEGATIVE Urine Urobilinogen 0.2 (NORMAL) Ur Leukocyte Esterase NEGATIVE Ur Microscopic Review NOT INDICATED Urine Culture Comments NOT INDICATED Urine HCG, Qual NEGATIVE PD MEDICAL DECISION MAKING - ED course Complexity details: reviewed results, re-evaluated patient, considered differential, d/w patient ED course: 34-year-old female presents the emergency department with 1 month of nausea and vomiting that has gotten worse over the last 2 to 3 days. She associates this with her venlafaxine. I considered serotonin syndrome. However patient has no tachycardia or hypertension. She is normothermic. Her labs and electrolytes are otherwise unremarkable. In the emergency department she was given 2 L of crystalloid as well as Compazine with marked improvement in her symptoms. Following the Compazine she was now tolerating oral liquids. I discussed this case with her and she agrees that suddenly stopping the venlafaxine could be dangerous. She will begin to try and taper back. I have advised her to discuss with her primary doctor alternative medications to help manage her anxiety and depression. She easily contracts for safety and is not a risk to herself. Departure - Departure Disposition: 01 Home, Self Care Clinical Impression: Nausea & vomiting Qualifiers: Vomiting type: unspecified Vomiting Intractability: non-intractable Qualified Code(s): R11.2 - Nausea with vomiting, unspecified Condition: Stable Record reviewed to determine appropriate education?: Yes Follow-Up: QUITA CABRERA MD [Primary Care Provider] - Prescriptions: Prochlorperazine [Compazine] 5 mg PO BID #15 tablet Comments: Ping your labs today are essentially normal. I am glad that you are feeling better after the IV fluids. The persistent nausea and vomiting may be related to the venlafaxine. I do not want you to stop taking this medication abruptly. Please discuss with your primary doctor about tapering back and then starting a new medication to help manage your symptoms. I have prescribed some Compazine and medication to help with nausea. You may take twice daily as needed. Return here if you have worsening symptoms, high fever or racing heart rate.
[2020-10-01 21:11] LABS: BILIRUBIN,URINE NEGATIVE (NEGATIVE); GLUCOSE, URINE (UA) NEGATIVE (NEGATIVE); KETONES,URINE (UA) NEGATIVE (NEGATIVE); LEUKOCYTE ESTERASE, URINE NEGATIVE (NEGATIVE); NITRITE,URINE NEGATIVE (NEGATIVE); OCCULT BLOOD,URINE TRACE-INTA (NEGATIVE); PH,URINE 5.5 PH (5.0-7.5); PROTEIN,URINE NEGATIVE (NEGATIVE); UROBILINOGEN,URINE 0.2 (NORMAL) E.U./dL (NORMAL)
[2020-10-01 21:21] LABS: CLARITY,URINE CLEAR (CLEAR); HCG UR QUAL NEGATIVE
[2020-10-01 21:46] VITALS: BP 145/74
== END 2020-10-01 21:47 | disposition home or self-care (01) ==
LOC: ED 18:26
DX: R11.2 Nausea with vomiting, unspecified (principal); F41.9 Anxiety disorder, unspecified; F32.9 Major depressive disorder, single episode, unspecified
CPT/HCPCS: 36415; 80053; 81001; 81003; 81025; 83690; 84443; 85025; 87086; 96374; 99284